=== PATIENT | male | born 1950 | race Two or more races ===

== ENCOUNTER 2024-02-12 08:36 | Emergency (ER) | payer MEDICAID, MEDICARE ==
[~2024-02-12] VITALS: Ht 165.1 cm; Wt 72.5 kg
[~2024-02-12 08:36] MED LIST: ACYC1TAB2 PO; AMLO1TAB23 PO; GLIP10TA9 PO; HYDR50TA47 PO; LISI40TA16 PO; METF1000 PO
[2024-02-12 08:42] VITALS: BP 147/59; PULSE 54; RESP 16; TEMP 97.9; O2SAT 97
== END 2024-02-12 10:15 | disposition home or self-care (01) ==
LOC: ER 08:36
DX: R07.81 Pleurodynia (principal); M79.642 Pain in left hand; R51.9 Headache, unspecified; E11.9 Type 2 diabetes mellitus without complications; I10 Essential (primary) hypertension; E78.5 Hyperlipidemia, unspecified; Z90.89 Acquired absence of other organs; Z86.73 Personal history of transient ischemic attack (TIA), and cerebral infarction without residual deficits; W01.0XXA Fall on same level from slipping, tripping and stumbling without subsequent striking against object, initial encounter; Y93.89 Activity, other specified; Y92.512 Supermarket, store or market as the place of occurrence of the external cause; Y99.8 Other external cause status
CPT/HCPCS: 70450; 71046; 73120

== ENCOUNTER → 2024-11-27 | Outpatient (CLI) | payer MEDICAID ==
[2024-11-27 06:52] LABS: Hematocrit 46.7 % (41.0-53.0); Hemoglobin 15.6 g/dL (13.5-17.5); Mean Corpuscular Hgb Conc. 33.4 g/dL (32.0-36.0); Mean Corpuscular Volume 95.9 fL (80.0-100.0); Platelet Count (auto) 219 10^3/uL (140-450); Red Blood Cells 4.87 10^6/uL (4.5-5.90); Red Cell Distribution Width 14.9 % (11.8-14.3); White Blood Cell 7.8 10^3/uL (4.4-10.8)
[2024-11-27 06:53] LABS: Urine Blood Negative /uL (Negative); Urine Clarity Clear (Clear); Urine Color Colorless (Yellow); Urine Protein, UAD Negative (Negative); Urine Specific Gravity 1.011 (1.001-1.035); Urine Urobilinogen Normal (Negative)
[2024-11-27 06:57] LABS: Band Neutrophils % (manual) 0; Basophils % (manual) 0 (0.0-2.0); Blast Cells 0; Metamyelocytes % 0; Myelocytes % 0; Promyelocytes % 0; Reactive Lymphocytes 0
[2024-11-27 07:09] LABS: Prostate Specific Antigen 0.56 ng/mL (0.0-4.0)
[2024-11-27 07:11] LABS: Alanine Aminotransferase 19 U/L (7-40); Albumin 4.5 g/dL (3.2-4.8); Alkaline Phosphatase 81 U/L (46-116); Anion Gap 9 (5-15); Aspartate Aminotransferase 20 U/L (13-40); BUN/Creatinine Ratio 17.7 (10.0-20.0); Bilirubin, Total 0.7 mg/dL (0.2-1.0); Blood Urea Nitrogen 20 mg/dL (9-23); Calcium 9.7 mg/dL (8.7-10.4); Carbon Dioxide 28 mmol/L (20-31); Chloride 105 mmol/L (98-107); Cholesterol 127 mg/dL (< 200); HDL Cholesterol 45 mg/dL (40-59); LDL Cholesterol 58 mg/dL (< 100); Magnesium 2.2 mg/dL (1.6-2.6); Potassium 4.4 mmol/L (3.5-5.1); Sodium 142 mmol/L (136-145); Total Protein 6.8 g/dL (5.7-8.2); Triglycerides 104 mg/dL (< 150)
[2024-11-27 07:14] LABS: Folate (Folic Acid) 16.19 ng/mL (>5.38)
[2024-11-27 07:29] LABS: Glucose 115 mg/dL (74-106)
[2024-11-27 09:01] LABS: Eosinophils % (manual) 28 (0-7); Lymphocytes % (manual) 34 (10.0-50.0); Monocytes % (manual) 3 (0-12); Platelet Estimate Adequate
[2024-11-27 11:31] LABS: Uric Acid 4.3 mg/dL (3.7-9.2)
== END | disposition home or self-care (01) ==
LOC: LAB 05:59
PROVIDERS: ATTEND Internal Medicine
DX: N40.0 Benign prostatic hyperplasia without lower urinary tract symptoms (principal); I10 Essential (primary) hypertension; E11.21 Type 2 diabetes mellitus with diabetic nephropathy; I70.0 Atherosclerosis of aorta; K21.9 Gastro-esophageal reflux disease without esophagitis; E78.2 Mixed hyperlipidemia
CPT/HCPCS: 36415; 80053; 80061; 81003; 82306; 82607; 82746; 83036; 83735; 84153; 84443; 84550; 85007; 85027; 87086

== ENCOUNTER → 2025-02-10 | Outpatient (CLI) | payer MEDICAID ==
[2025-02-10 06:51] LABS: Hematocrit 45.5 % (41.0-53.0); Hemoglobin 15.3 g/dL (13.5-17.5); Mean Corpuscular Hemoglobin 32.3 pg (28.0-32.0); Mean Corpuscular Hgb Conc. 33.8 g/dL (32.0-36.0); Mean Corpuscular Volume 95.6 fL (80.0-100.0); Platelet Count (auto) 196 10^3/uL (140-450); Red Blood Cells 4.75 10^6/uL (4.5-5.90); Red Cell Distribution Width 14.2 % (11.8-14.3); White Blood Cell 8.3 10^3/uL (4.4-10.8)
[2025-02-10 06:53] LABS: Urine Blood Negative /uL (Negative); Urine Clarity Clear (Clear); Urine Color Light-Yellow (Yellow); Urine Protein, UAD Negative (Negative); Urine Specific Gravity 1.015 (1.001-1.035); Urine Urobilinogen Normal (Negative); Urine pH 6.5 (5.0-9.0)
[2025-02-10 07:11] LABS: Band Neutrophils % (manual) 0; Basophils % (manual) 0 (0.0-2.0); Blast Cells 0; Metamyelocytes % 0; Myelocytes % 0; Promyelocytes % 0
[2025-02-10 07:36] LABS: Prostate Specific Antigen 0.61 ng/mL (0.0-4.0)
[2025-02-10 07:38] LABS: Alanine Aminotransferase 33 U/L (7-40); Alkaline Phosphatase 92 U/L (46-116); Anion Gap 8 (5-15); BUN/Creatinine Ratio 18.8 (10.0-20.0); Blood Urea Nitrogen 19 mg/dL (9-23); Calcium 9.5 mg/dL (8.7-10.4); Carbon Dioxide 30 mmol/L (20-31); Chloride 106 mmol/L (98-107); Glucose 102 mg/dL (74-106); LDL Cholesterol 56 mg/dL (< 100); Magnesium 2.2 mg/dL (1.6-2.6); Potassium 4.1 mmol/L (3.5-5.1); Sodium 144 mmol/L (136-145); Total Protein 7.1 g/dL (5.7-8.2); Triglycerides 87 mg/dL (< 150)
[2025-02-10 07:39] LABS: Albumin 4.6 g/dL (3.2-4.8); Aspartate Aminotransferase 21 U/L (13-40); Cholesterol 127 mg/dL (< 200); HDL Cholesterol 49 mg/dL (40-59)
[2025-02-10 07:40] LABS: Bilirubin, Total 0.8 mg/dL (0.2-1.0); Folate (Folic Acid) 21.06 ng/mL (>5.38)
[2025-02-10 07:52] LABS: Uric Acid 3.4 mg/dL (3.7-9.2)
[2025-02-10 09:20] LABS: Monocytes % (manual) 10 (0-12); Reactive Lymphocytes 3
[2025-02-10 09:21] LABS: Eosinophils % (manual) 19 (0-7); Lymphocytes % (manual) 40 (10.0-50.0); Platelet Estimate Adequate; RBC Morphology Normal
== END | disposition home or self-care (01) ==
LOC: LAB 06:04
PROVIDERS: ATTEND Internal Medicine
DX: I10 Essential (primary) hypertension (principal); K21.9 Gastro-esophageal reflux disease without esophagitis; E55.9 Vitamin D deficiency, unspecified; D51.9 Vitamin B12 deficiency anemia, unspecified; E61.2 Magnesium deficiency; R94.6 Abnormal results of thyroid function studies; E79.0 Hyperuricemia without signs of inflammatory arthritis and tophaceous disease; R82.998 Other abnormal findings in urine; R82.90 Unspecified abnormal findings in urine; R82.79 Other abnormal findings on microbiological examination of urine
CPT/HCPCS: 36415; 80053; 80061; 81003; 82306; 82607; 82746; 83036; 83735; 84153; 84443; 84550; 85007; 85027; 87086

== ENCOUNTER 2025-08-17 06:04 | Outpatient (CLI) | payer MEDICAID ==
[2025-08-17 07:18] LABS: Hematocrit 46.2 % (41.0-53.0); Hemoglobin 15.5 g/dL (13.5-17.5); Mean Corpuscular Hemoglobin 32.0 pg (28.0-32.0); Mean Corpuscular Volume 95.6 fL (80.0-100.0)
[2025-08-17 07:40] LABS: Urine Protein, UAD TRACE (Negative)
[2025-08-17 07:53] LABS: Alanine Aminotransferase 35 U/L (7-40); Alkaline Phosphatase 93 U/L (46-116); Anion Gap 11 (5-15); BUN/Creatinine Ratio 20.6 (10.0-20.0); Bilirubin, Total 0.6 mg/dL (0.2-1.0); Blood Urea Nitrogen 21 mg/dL (9-23); Calcium 9.6 mg/dL (8.7-10.4); Carbon Dioxide 27 mmol/L (20-31); Chloride 105 mmol/L (98-107); Cholesterol 139 mg/dL (< 200); HDL Cholesterol 52 mg/dL (40-59); Potassium 4.0 mmol/L (3.5-5.1); Sodium 143 mmol/L (136-145); Total Protein 7.7 g/dL (5.7-8.2); Triglycerides 91 mg/dL (< 150)
[2025-08-17 07:56] LABS: Albumin 4.8 g/dL (3.2-4.8); Glucose 129 mg/dL (74-106)
[2025-08-17 09:11] LABS: RBC Morphology Normal; Total Cells Counted 100.0 (100)
[2025-08-17 09:21] LABS: Uric Acid 3.2 mg/dL (3.7-9.2)
== END 2025-08-17 17:00 | disposition home or self-care (01) ==
LOC: LAB 06:04
PROVIDERS: ATTEND Internal Medicine
DX: E11.9 Type 2 diabetes mellitus without complications (principal); E78.49 Other hyperlipidemia; E61.2 Magnesium deficiency; E79.0 Hyperuricemia without signs of inflammatory arthritis and tophaceous disease; E55.9 Vitamin D deficiency, unspecified; D51.9 Vitamin B12 deficiency anemia, unspecified; R82.79 Other abnormal findings on microbiological examination of urine; R82.90 Unspecified abnormal findings in urine; R82.998 Other abnormal findings in urine; R94.6 Abnormal results of thyroid function studies; R68.89 Other general symptoms and signs
CPT/HCPCS: 36415; 80053; 80061; 81001; 82306; 82607; 82746; 83036; 84443; 84550; 85007; 85027; 87086